=== PATIENT | male | born 1970 ===

== ENCOUNTER → 2018-08-04 21:06 | Outpatient (ROUT) | payer OTHER, MEDICAID, SELFPAY ==
[2018-08-04 21:23] LABS: HEMOLYSIS 34 (0-50)
[2018-08-04 21:26] LABS: Add Manual Diff / Slide Review NO; Basophils Absolute Auto 100 /uL (0-100); Basophils Percent Auto 1.2 % (0-2); Eosinophils Absolute Auto 200 /uL (0-450); Hematocrit 46.6 % (41-53); Lymphocytes Absolute Auto 1800 /uL (1100-4500); Lymphocytes Percent Auto 35.3 % (25-40); Mean Corpuscular HGB Conc 34.4 % (30-36); Mean Corpuscular Hemoglobin 31.8 PG (26-34); Mean Corpuscular Volume 92.6 fL (80-100); Monocytes Absolute Auto 400 /uL (0-900); Monocytes Percent Auto 8.3 % (3-14); Neutrophils Absolute Auto 2700 /uL (1500-7000); Neutrophils Percent Auto 52.2 % (50-75); Platelet Count 208 X10^3/uL (150-400); Red Blood Cell Count 5.03 X10^6/uL (4.5-5.9); Red Cell Distribution Width 12.7 % (11.6-14.8); White Blood Cell Count 5.2 X10^3/uL (4.5-11.0)
[2018-08-04 21:29] LABS: Alanine Aminotransferase 17 IU/L (21-72); Albumin 4.1 g/dL (3.5-5.0); Albumin Globulin Ratio 1.3 (1.0-2.8); Alkaline Phosphatase 77 U/L (38-126); Aspartate Aminotransferase 78 IU/L (17-59); BUN Creatinine Ratio 18.8 (6-22); Bilirubin Total 0.6 mg/dL (0.2-1.3); Blood Urea Nitrogen 15 mg/dL (9-20); Calcium 9.2 mg/dL (8.4-10.2); Carbon Dioxide 24 mmol/L (22-32); Chloride 105 mmol/L (98-107); Estimated Glomerular Filt Rate > 60.0 mL/min (>60); Globulin 3.1 g/dL (1.7-4.1); Glucose 93 mg/dL (70-100); Potassium 4.5 mmol/L (3.4-5.1); Sodium 139 mmol/L (137-145); Total Protein 7.2 g/dL (6.3-8.2)
[2018-08-04 22:04] LABS: Ferritin 37.8 ng/mL (17.9-464)
[2018-08-04 22:07] LABS: Erythrocyte Sedimentation Rate 4 MM/HR (0-15)
[2018-08-04 22:24] LABS: Thyroid Stimulating Hormone 1.53 uIU/mL (0.47-4.68)
[2018-08-04 22:32] LABS: Hemoglobin A1C% w Est Avg Glu 4.9 % (4.0-6.0)
[2018-08-05 05:00] LABS: Vitamin B12 996 pg/mL (239-931)
== END ==
PROVIDERS: Visit Provider Family Medicine
DX: R53.81 Other malaise (principal); R53.1 Weakness
CPT/HCPCS: 36415; 80053; 82533; 82607; 82728; 82746; 83036; 84403; 84443; 85025; 85651